=== PATIENT | male | born 1955 | race Caucasian/White ===

== ENCOUNTER 2018-08-18 18:42 | Observation (INO) | payer MEDICARE ==
[~2018-08-18] VITALS: Ht 185.4 cm; Wt 95.6 kg
--- NOTE | 2018-08-18 19:13 | NUR ---
report taken from SONNY Johnson.
[2018-08-18 19:15] LABS: BASOPHILS # (AUTO) 0.03 x10^3/uL (0-0.1); BASOPHILS % (AUTO) 0 % (0-1); EOSINOPHILS # (AUTO) 0.27 x10^3/uL (0-0.4); EOSINOPHILS % (AUTO) 3 % (1-7); LYMPHOCYTES # (AUTO) 1.97 x10^3/uL (1-3.4); LYMPHOCYTES % (AUTO) 24 % (22-44); MD NO; MEAN CORPUSCULAR HEMOGLOBIN 31.4 pg (27.5-34.5); MEAN CORPUSCULAR HGB CONC 33.5 g/dL (33.2-36.2); MEAN CORPUSCULAR VOLUME 93.9 fL (81-97); MEAN PLATELET VOLUME 7.4 fL (7.4-10.4); MONOCYTES # (AUTO) 1.23 x10^3/uL (0.2-0.8); MONOCYTES % (AUTO) 15 % (2-9); NEUTROPHILS % (AUTO) 57 % (42-75); PLATELET COUNT 236 x10^3/uL (130-400); RED BLOOD COUNT 5.59 x10^6/uL (4.38-5.82); RED CELL DISTRIBUTION WIDTH 13.1 % (9.4-14.8)
[2018-08-18] MEDS ORDERED: METOPROLOL PO (19:16)
[2018-08-18] MEDS ORDERED: PANT20TA2 PO (19:16)
--- NOTE | 2018-08-18 19:16 | NUR ---
BREAK RN: THIS IS A 63 YO MALE WHO PRESENTS TO THE ER C/O RIGHT CALF PAIN/SWELLING SINCE YESTERDAY. PT WENT TO A CLINIC, HAD AN OUTPATIENT US AND WAS BROUGHT OVER BY RADIOLOGIST AFTER A BLOOD CLOT WAS FOUND. PT'S BLE BOTH FEEL EQUALLY WARM TO TOUCH. PT APPEARS SLIGHTLY TENDER TO PALP BEHIND RIGHT KNEE AND RIGHT CALF. PT REPORTS SWELLING. MINIMAL SWELLING NOTED BY RN. NASREEN CHIN AT BEDSIDE AND DISCUSSED TREATMENT OPTIONS INCLUDING DC W/TREATMENT AND ADMISSION INCLUDING RISKS VS. BENEFITS UP TO AND INCLUDING A TRAVELLING BLOOD CLOT TO THE CARDIOPULOMNARY SYSTEM. PT AND PT'S VERBALIZE UNDERSTANDING. PT ON CONT BP AND O2 MONITORS. CALL LIGHT WITHIN REACH. REPORT TO PRIMARY RN LILLY.
[2018-08-18 19:22] LABS: INTERNATIONAL NORMALIZED RATIO 1.02 (0.93-1.1); PROTHROMBIN TIME 10.8 Seconds (9.6-11.5)
[2018-08-18 19:23] LABS: ALANINE AMINOTRANSFERASE 32 U/L (12-78); ALBUMIN 3.5 g/dL (3.4-5.0); ANION GAP 4 mmol/L (5-15); CALCIUM 8.9 mg/dL (8.5-10.1); CHLORIDE 106 mmol/L (98-107); CREATININE 1.32 mg/dL (0.7-1.3)
[2018-08-18 19:25] LABS: ALKALINE PHOSPHATASE 84 U/L (45-117); BILIRUBIN,TOTAL 0.4 mg/dL (0.2-1.0); TOTAL PROTEIN 7.7 g/dL (6.4-8.2)
[2018-08-18] MEDS ORDERED: ENOXAPARIN 100 MG/ML SQ SCH (20:00)
[2018-08-18] MEDS ORDERED: ENOXAPARIN 100 MG/ML ONE (20:02)
--- NOTE | 2018-08-18 20:27 | NUR ---
PT MEDICATED PER EMAR. PT TOLERATED WELL. PT'S AT BEDSIDE. SPO2 AND BP MONITORS IN PLACE. CALL LIGHT WITHIN REACH. PT AOX4. RESPS EVEN AND UNLABORED.
--- NOTE | 2018-08-18 20:32 | NUR ---
sbar report given to dee dee bob. all questions answered.
[2018-08-18 21:37] VITALS: BP 150/90
[2018-08-18] MEDS ORDERED: hydrALAzine 20 MG/ML, 1ML IVPush PRN (22:00)
[2018-08-18] MEDS ORDERED: TEMAZEPAM 15 MG CAPSULE PO PRN (22:00)
[2018-08-18] MEDS ORDERED: DOCUSATE 100 MG CAPSULE PO PRN (22:00)
[2018-08-18] MEDS ORDERED: ACETAMINOPHEN 325 MG TABLET PO PRN (22:00)
[2018-08-18] MEDS: PANTOPRAZOLE 20MG TABLET PO SCH (22:10)
[2018-08-18] MEDS: SODIUM CHLORIDE 0.9% 1,000 ML IV SCH (22:10)
[2018-08-19 02:37] VITALS: BP 145/93
[2018-08-19] MEDS: SODIUM CHLORIDE 0.9% 1,000 ML IV SCH ×2 (03:19→12:00)
[2018-08-19 04:40] LABS: ANION GAP 4 mmol/L (5-15); CALCIUM 8.2 mg/dL (8.5-10.1); CHLORIDE 108 mmol/L (98-107); CREATININE 1.13 mg/dL (0.7-1.3)
[2018-08-19 07:23] VITALS: BP 142/95
[2018-08-19] MEDS: PANTOPRAZOLE 20MG TABLET PO SCH (08:18)
[2018-08-19] MEDS ORDERED: ENOXAPARIN 100 MG/ML SQ SCH (08:30)
[2018-08-19] MEDS ORDERED: RIVA1TAB PO (09:32)
== END 2018-08-19 13:28 | disposition home or self-care (01) ==
LOC: ED 19:27 → UNDOADMOB 19:50 → EDIP 19:50 → INTOOBSV 19:50 → 3NW 21:15 → EDIP 21:15 → INTOOBSV 21:38 → 3NW 21:38 → OBSVTOIN 21:38 → 3NW 08-19 13:12 → DCLOUNGE 08-19 13:12 → UNDODISOB 08-19 13:28
PROVIDERS: ADMIT Hospitalist; ATTEND Hospitalist
DX: I82.412 Acute embolism and thrombosis of left femoral vein (principal); N17.9 Acute kidney failure, unspecified; I82.432 Acute embolism and thrombosis of left popliteal vein; I82.442 Acute embolism and thrombosis of left tibial vein; E86.0 Dehydration; I10 Essential (primary) hypertension; Z86.19 Personal history of other infectious and parasitic diseases
CPT/HCPCS: 36415; 80048; 80053; 85025; 85610; 85730; 96372; 99284; G0378; J1650; J7030; 99285